=== PATIENT | male | born 1995 | race Two or more races ===

== ENCOUNTER 2022-04-25 17:40 | Emergency (ER) | payer OTHER ==
[~2022-04-25] VITALS: Ht 165.1 cm; Wt 120.2 kg
[2022-04-25] MEDS ORDERED: NAPR500T6 PO (19:47)
[2022-04-25] MEDS ORDERED: KETOROLAC TROMETHAMINE INJ 60 MG/2 ML VIAL IM ONE (20:00)
--- NOTE | 2022-04-25 20:02 | NUR ---
Patient discharged to home in stable condition. Written and verbal after care instructions given. Patient verbalizes understanding of instruction.
[2022-04-25 21:06] VITALS: BP 139/71
== END 2022-04-25 21:06 | disposition home or self-care (01) ==
LOC: ER 17:46
DX: M79.671 Pain in right foot (principal); J45.909 Unspecified asthma, uncomplicated
CPT/HCPCS: 73630-TC